=== PATIENT | female | born 1980 | race Caucasian/White ===

== ENCOUNTER 2019-04-24 15:00 | Day surgery (SDC) | payer OTHER ==
[2019-04-25] MEDS ORDERED: TENORMIN25 MG (10:53)
[2019-04-25] MEDS ORDERED: PNEU16DI2 (10:53)
== END 2019-04-24 19:20 | disposition home or self-care (01) ==
LOC: AMB-ENDOS 15:00
DX: K64.2 Third degree hemorrhoids (principal)

== ENCOUNTER 2019-04-25 10:21 | Emergency (ER) | payer OTHER ==
[~2019-04-25] VITALS: Ht 154.9 cm; Wt 55.8 kg
[2019-04-25] MEDS ORDERED: TENORMIN25 MG (10:53)
[2019-04-25] MEDS ORDERED: PNEU16DI2 (10:53)
== END 2019-04-25 13:08 | disposition home or self-care (01) ==
LOC: ER 10:21
DX: R00.2 Palpitations (principal); T50.995A Adverse effect of other drugs, medicaments and biological substances, initial encounter